=== PATIENT | male | born 1990 | race Caucasian/White ===

== ENCOUNTER 2025-04-03 14:44 | Emergency (ER) | payer MEDICAID ==
[~2025-04-03] VITALS: Ht 162.6 cm; Wt 78.0 kg
[2025-04-03 14:47] VITALS: BP 109/72; PULSE 89; RESP 18; TEMP 36.9; O2SAT 96
[2025-04-03] MEDS ORDERED: AMOX1TAB16 MT (17:47)
== END 2025-04-03 21:00 | disposition home or self-care (01) ==
LOC: ER 14:44
DX: S61.412A Laceration without foreign body of left hand, initial encounter (principal); W26.0XXA Contact with knife, initial encounter; Y93.89 Activity, other specified; Y92.89 Other specified places as the place of occurrence of the external cause; Y99.8 Other external cause status
CPT/HCPCS: 99283